=== PATIENT | female | born 1995 | race Caucasian/White ===

== ENCOUNTER 2018-03-14 14:24 | Emergency (ER) | payer MEDICAID ==
[2018-03-14] MEDS ORDERED: IBUPROFEN 800 MG TABLET PO ONE (14:52)
--- NOTE | 2018-03-14 14:54 | ER Document Report ---
HPI - HPI Patient complains to provider of: wrist pain Onset: Other - 1 month Onset/Duration: Persistent Quality of pain: Achy Pain Level: 4 Context: Patient presents complaining of bilateral wrist pain for over 2-1/2 years that worsened over the past month. Patient states that her wrist pain symptoms are aggravated by lifting her toddler. Patient does states she has a history of carpal tunnel syndrome and was supposed to have surgery. Patient denies any injury to the wrist. Patient states that her wrist pain wakes her up at night and she has tingling and numbness occasionally in her hands. Associated Symptoms: Other - Bilateral wrist pain Exacerbated by: Movement Relieved by: Denies Similar symptoms previously: Yes Recently seen / treated by doctor: No - ROS ROS below otherwise negative: Yes Systems Reviewed and Negative: Yes All other systems reviewed and negative - CONSTITUTIONAL Constitutional: DENIES: Fever, Chills - MUSCULOSKELETAL Musculoskeletal: REPORTS: Extremity pain. DENIES: Swelling - DERM Skin Color: Normal Skin Problems: None Past Medical History - General Information source: Patient - Social History Smoking Status: Current Every Day Smoker Smoking Education Provided: Yes Frequency of alcohol use: None Drug Abuse: None Occupation: None Lives with: Other - [facility] Family History: Reviewed & Not Pertinent Musculoskeletal Medical History: Reports Other - Carpal tunnel Past Surgical History: Reports: Hx Adenoidectomy, Hx Appendectomy, Hx Cholecystectomy, Hx Genitourinary Surgery - Bladder surgery, Hx Tonsillectomy Vertical Provider Document - CONSTITUTIONAL Exam Limitations: No Limitations General Appearance: WD/WN, No Apparent Distress - INFECTION CONTROL TRAVEL OUTSIDE OF THE [place] IN LAST 30 DAYS: No - HEENT HEENT: Atraumatic - NECK Neck: Normal Inspection - RESPIRATORY Respiratory: No Respiratory Distress - CARDIOVASCULAR Pulses: Normal: Radial - BACK Back: Normal Inspection - MUSCULOSKELETAL/EXTREMETIES Musculoskeletal/Extremeties: MAEW, FROM, Tender - Generalized tenderness to bilateral wrist area, no edema noted, normal skin color and temperature overlying joints bilaterally. Positive Phalen sign - NEURO Level of Consciousness: Awake, Alert, Appropriate Motor/Sensory: No Motor Deficit, No Sensory Deficit - DERM Integumentary: Warm, Dry, No Rash Course - Vital Signs Vital signs: Temp Pulse Resp BP Pulse Ox 98.7 F 113 H 17 141/85 H 99 03/14/18 14:29 03/14/18 14:29 03/14/18 14:29 03/14/18 14:29 03/14/18 14:29 Procedures - Immobilization Left Wrist Pre-Proc Neuro Vasc Exam: Normal Immobilizer type: Cock-up Performed by: PCT Post-Proc Neuro Vasc Exam: Normal Alignment checked and good: Yes Right Wrist Pre-Proc Neuro Vasc Exam: Normal Immobilizer type: Cock-up Performed by: PCT Post-Proc Neuro Vasc Exam: Normal Alignment checked and good: Yes Discharge - Discharge Clinical Impression: Bilateral wrist pain Condition: Stable Disposition: HOME, SELF-CARE Instructions: Carpal Tunnel Syndrome ([facility]), Temporary Splint ([facility]) Additional Instructions: Return immediately for any new or worsening symptoms Followup with your primary care provider, call tomorrow to make a followup appointment Follow-up with orthopedics for further evaluation, call tomorrow for an appointment Prescriptions: Naproxen [Naprosyn 250 Nmg Tablet] 1 tab PO BID #14 tablet Forms: Smoking Cessation Education Referrals: [facility] [Provider Group] - Follow up as needed
[2018-03-14 15:10] VITALS: BP 117/67
== END 2018-03-14 15:10 | disposition home or self-care (01) ==
LOC: ER 14:24
DX: M25.531 Pain in right wrist (principal); M25.532 Pain in left wrist; F17.200 Nicotine dependence, unspecified, uncomplicated
CPT/HCPCS: 99283; L3908 ×2